=== PATIENT | female | born 1985 | race Caucasian/White ===

== ENCOUNTER 2016-06-19 22:34 | Inpatient (IN) | payer OTHER ==
[~2016-06-19] VITALS: Ht 162.6 cm; Wt 87.1 kg
[2016-06-20 08:12] VITALS: BP 102/57
[2016-06-20 08:29] LABS: ABSOLUTE BASOPHIL COUNT 0.1 /CUMM (0.0-0.2); ABSOLUTE EOSINOPHIL COUNT 0.1 /CUMM (0.0-0.7); ABSOLUTE GRANULOCYTE CT 10.5 /CUMM (1.4-6.5); ABSOLUTE LYMPH COUNT 2.1 /CUMM (1.2-3.4); ABSOLUTE MONOCYTE COUNT 0.9 /CUMM (0.10-0.60); BASOPHIL % 0.4 % (0.0-2.0); HEMATOCRIT 30.9 % (37-47); MEAN CORPUSCULAR HGB 26.9 PG (27.0-31.0); MEAN CORPUSCULAR HGB CONC 32.9 G/DL (33.0-37.0); MEAN CORPUSCULAR VOLUME 81.8 FL (81.0-99.0); MEAN PLATELET VOLUME 10.1 FL (7.4-10.4); PLATELET COUNT 199 /CUMM (130-400); RBC DISTRIBUTION WIDTH 13.9 % (11.5-14.5); RED BLOOD CELL CT 3.78 /CUMM (4.20-5.40); WHITE BLOOD CELL COUNT 13.6 /CUMM (4.8-10.8)
--- NOTE | 2016-06-20 13:10 | Labor & Delivery Summary ---
Delivery Summary Vaginal Delivery: Vaginal: spontaneous Episiotomy/Lacerations: Episiotomy/Lacerations: lac Placenta: Placenta: spontanteous, normal, 3 vessel, nuchal cord (x_) Anesthesia: epi Baby's Weight: P STS Apgars - 1 Min: 9 Apgars - 5 Min: 9
[2016-06-21 07:43] LABS: ABSOLUTE BASOPHIL COUNT 0 /CUMM (0.0-0.2); ABSOLUTE EOSINOPHIL COUNT 0.2 /CUMM (0.0-0.7); ABSOLUTE GRANULOCYTE CT 8.4 /CUMM (1.4-6.5); ABSOLUTE LYMPH COUNT 2.4 /CUMM (1.2-3.4); ABSOLUTE MONOCYTE COUNT 0.9 /CUMM (0.10-0.60); BASOPHIL % 0.4 % (0.0-2.0); EOSINOPHIL % 1.8 % (0-5); GRANULOCYTE % 70.5 % (42.2-75.2); HEMATOCRIT 29.9 % (37-47); MEAN CORPUSCULAR HGB 27.1 PG (27.0-31.0); MEAN CORPUSCULAR HGB CONC 33.3 G/DL (33.0-37.0); MEAN CORPUSCULAR VOLUME 81.3 FL (81.0-99.0); MEAN PLATELET VOLUME 10.9 FL (7.4-10.4); PLATELET COUNT 212 /CUMM (130-400); RBC DISTRIBUTION WIDTH 13.7 % (11.5-14.5); RED BLOOD CELL CT 3.68 /CUMM (4.20-5.40)
[2016-06-21] MEDS ORDERED: DOCUSATE SODIU100 M3 PO (18:43)
[2016-06-21] MEDS ORDERED: IBUPROFEN800 M1 PO (18:43)
== END 2016-06-22 11:55 | DRG 560 ==
LOC: CBCO 22:34 → GNO 06-20 00:15
PROVIDERS: ADMIT Obstetrics & Gynecology
PROC: 0HQ9XZZ Repair Perineum Skin, External Approach (ICD-10-PCS; principal; 2016-06-20)
PROC: 10E0XZZ Delivery of Products of Conception, External Approach (ICD-10-PCS; principal; 2016-06-20)
DX: O70.0 First degree perineal laceration during delivery (principal); Z3A.39 39 weeks gestation of pregnancy; Z37.0 Single live birth
CPT/HCPCS: 6050; GNOP; 36415; 81001; 87086; 96360; G0378; G0463; J2270; J7120

== ENCOUNTER 2016-07-11 14:59 | Emergency (ER) | payer OTHER ==
[~2016-07-11] VITALS: Ht 162.6 cm; Wt 81.2 kg
[~2016-07-11 14:59] MED LIST: DOCUSATE SODIU100 M3 PO; IBUPROFEN800 M1 PO
[2016-07-11 17:56] VITALS: BP 112/68
--- NOTE | 2016-07-11 18:00 | ED PSYCHIATRIC COMPLAINT ---
History of Present Illness General Chief Complaint: Psychiatric Related Complaint Stated Complaint: POST PARDOM DEPRESSION Source: patient Exam Limitations: no limitations Vital Signs & Intake/Output Vital Signs & Intake/Output Vital Signs Date Time Temp Pulse Resp B/P B/P Pulse O2 O2 Flow FiO2 Mean Ox Delivery Rate 07/11 1756 98.7 63 12 112/68 98 Room Air 07/11 1508 98.3 80 20 114/75 98 Room Air Allergies Coded Allergies: No Known Allergies (06/20/16) Reconcile Medications Docusate Sodium 100 MG CAPSULE 100 MG PO BID PRN STOOL SOFTENER Ibuprofen 800 MG TABLET 800 MG PO Q6P PRN UTERINE CRAMPING Lorazepam (Ativan) 0.5 MG TABLET 1 TAB PO Q8-12H PRN STRESS/ANXIETY Triage Note: PT NORMAL VAGINAL DELIVERY 06/20/16. SIB DR NEGRON FOR POST DEPRESSION. PT STATES SHE IS HAVING A LOT OF ANXIETY WHEN HER HEART RACES, SHE GETS DIZZY WITH A LUMP IN HER THROAT AND HER HEAD HURTS. PT DENIES SI/HI Triage Nurses Notes Reviewed? yes : No Patient currently breastfeeds: Yes HPI: Patient presents for evaluation of depression. Patient just gave on the of last month. She states she does have a history of depression but during the last episode she did not require treatment ultimately. She was placed on antidepressant medication subsequent to that but discontinued that a number of months prior to her . She denies suicide ideation. Past History Travel History Traveled to [place] past 21 day No Medical History Any Pertinent Medical History? see below for history Psychiatric: depression Surgical History Surgical History: non-contributory Psychosocial History What is your primary language Latvian Tobacco Use: Never used ETOH Use: denies use Illicit Drug Use: denies illicit drug use Family History Hx Contributory? No Review of Systems Review of Systems Constitutional: Reports: no symptoms. EENTM: Reports: no symptoms. Respiratory: Reports: no symptoms. Cardiovascular: Reports: no symptoms. GI: Reports: no symptoms. Genitourinary: Reports: no symptoms. Musculoskeletal: Reports: no symptoms. Skin: Reports: no symptoms. Neurological/Psychological: Reports: see HPI. Hematologic/Endocrine: Reports: no symptoms. Immunologic/Allergic: Reports: no symptoms. All Other Systems: Reviewed and Negative Physical Exam Physical Exam General Appearance: SEE BELOW Neurological/Psychiatric: SEE BELOW Comments: General: Alert, calm, cooperative Head: Normocephalic, atraumatic Eyes: Normal inspection, no nystagmus, EOMI Ears: Normal inspection Nose: Normal inspection Throat: Moist mucosa Neck: Supple, no goiter Heart: Regular rate and rhythm, no murmurs rubs or gallops Lungs: Clear to auscultation bilaterally with good air entry Abdomen: Soft nontender nondistended, normal bowel sounds Chest: Nontender Extremities: Normal range of motion grossly, no tremors present, no cyanosis clubbing or edema of the upper extremities Neurologic: cranial nerves II through XII grossly intact, speech clear, gait normal Psychiatric: No apparent delusions or hallucinations, no pressured speech or thought blocking, mildly to moderately depressed affect. SAD PERSONS Done? patient not suicidal Progress Differential Diagnosis: STRESS, ANXIETY, DEPRESSION Plan of Care: Trial of Ativan and follow-up with psychiatry Departure Departure Disposition: HOME OR SELF CARE Condition: Stable Clinical Impression Primary Impression: Depression Qualifiers: Depression Type: major depressive disorder Major depression recurrence: recurrent Active/Remission status: currently active Major depression episode severity: moderate Qualified Code: F33.1 - Major depressive disorder, recurrent, moderate Referrals: PATIENT HAS NO PRIMARY CARE DR (PCP/Family) Additional Instructions: Ativan as prescribed. Do not breast-feed or pump but instead converted over to formula feeding entirely. Contact the [facility] outpatient psychiatry program and arrange for follow-up appointment as soon as possible. Notify your [facility] doctor and her primary care physician of this emergency department visit and treatment plan. Return if any concerns or sudden worsening. Departure Forms: Customer Survey General Discharge Information Prescriptions: Current Visit Scripts Lorazepam (Ativan) 1 TAB PO Q8-12H PRN STRESS/ANXIETY #10 TAB
[2016-07-11] MEDS ORDERED: ATIVAN0.5 M1 PO ×2 (18:12→18:56)
== END 2016-07-11 18:30 ==
LOC: ERH 14:59
DX: F32.9 Major depressive disorder, single episode, unspecified (principal)